=== PATIENT | female | born 2000 | race Caucasian/White ===

== ENCOUNTER 2025-08-08 21:07 | Emergency (ER) | payer OTHER, SELFPAY ==
[2025-08-08 21:12] VITALS: BP 130/84; PULSE 141; RESP 28; TEMP 37.6; O2SAT 94; BMI 29.0
--- NOTE | 2025-08-08 21:26 | ED_ITS ---
HPI - Animal Bite General Time Seen by Provider: 21:27 Date Seen: 08/08/25 Chief Complaint: Animal Bite Stated Complaint: bit by dog in face Time Seen by Provider: 08/08/25 21:26 Source: patient and RN notes reviewed Mode of arrival: ambulatory Limitations: no limitations History of Present Illness HPI narrative: This 24-year-old female presents to the ED crying after driving herself and to be evaluated for dog bite to her face. She got bit by the family dog at about 845 tonight. Her mom currently is sleeping, this is a family dog. The dog is not known to be ill but she has no idea about the dog's immunizations status. She initially told nursing staff in triage she did not want to say whom the dog belonged 2 but she later did let me know. She states her mom baby's this dog, treats it inappropriately by giving it treats at the wrong time. She was attempting to correct the dog. She admits to drinking a beer earlier and then she did have 1 prior to coming in. She is complaining of pain along a laceration she sustained in her upper eyebrow area, her nose hurts. She initially presented very anxious and crying, crying very loudly in the ER to the point that I did ask her to try a to calm down and not be so loud. She initially got upset for about 30 seconds but was easily talked down. She denied any vision changes. She does know that her tetanus is up-to-date last year. She states she ended up in [facility] in [place] I believe or possibly [place] a and spent 8 months there. She states that she had all of her immunizations updated which did include tetanus. In her epic history there is report methamphetamine use, illicit Xanax use, alcohol use. There is a history suicidal ideation with attempt, violent with staff during the hospitalization- 03/09/25 [facility] [place]. She has subsequently moved back to [place] is living with her mom. She is working at a convenience store. complaint: animal bite Related Data Patient tetanus UTD: Yes Previous Rx's ?Medication ?Instructions ?Recorded amoxicillin 875 mg-potassium 1 tab PO BID #13 tabs clavulanate 125 mg tablet Allergies Allergy/AdvReac Type Severity Reaction Status Date / Time No Known Drug Allergies Allergy Verified 07/11/25 09:21 Review of Systems Narrative: As per HPI. PFSH PFS Surgical History (Updated 07/11/25 @ 09:25 by Vanesa Durham) History of tonsillectomy ?Z90.89 - Acquired absence of other organs (ICD-10) Family History (Updated 07/11/25 @ 09:30 by Vanesa Durham) Father Schizophrenia Heart disease Myocardial infarction Diabetes Maternal Grandmother High blood pressure Social History Smoking Status: Current every day smoker Do you use any of these nicotine containing products: None Second hand tobacco smoke exposure: No How often do you have a drink containing alcohol: monthly or less How many standard drinks containing alcohol do you have on a typical day: 1 or 2 How often do you have six or more drinks on one occasion: Less than monthly AUDIT-C Alcohol total score: 2 Non-prescribed substance use: denies use service: No Exam Const: Vital Signs, click to edit/add: Vital Signs - 24 hr 08/08/25 21:12 08/08/25 22:13 Temperature 99.6 F Pulse Rate [Right Pulse Oximeter] 141 H 113 H Respiratory Rate 28 H 18 Blood Pressure [Ri ght Upper Arm] 130/84 150/100 H Pulse Oximetry 94 98 Oxygen Delivery Me thod Room Air This 24-year-old female was initially crying out, anxious, stating she was upset her family did not come in. She is alert and interactive, does settle with some coaching. She has a laceration that is about 2 cm long above her left eyebrow, following the contour and in the center there is a inferior T aspect that goes into the eyebrow. This is deep, into the subcutaneous tissue but does not going to any muscle. She was still raising her eyebrows. Sclera were injected from crying but she had symmetrical eye movements, pupils were equal and round. She has a small about 2 mm laceration on the bridge of the nose, a little oozing but skin edges very well approximated. There was a little abrasion or tooth fadumo along the left nostril/alar ridge. No active bleeding from her nose but she do es have some bruising along the bridge of her nose. No other traumatic change noted on her face, speech is normal. Lungs are clear, good air entry, no wheeze or crackles. CV regular rate and rhythm, no murmur. Procedure note: 10 mL of 1% lidocaine with epinephrine was drawn up, about 6 mL was used locally over the eyebrow wound. I then used irrigation and wound cleanser to clean this wound out. Ten simple interrupted sutures using 4-0 Ethilon were used to reapproximate the wound. Patient tolerated procedure well, there were no immediate complications. Technically I would have placed more sutures if this patient had not had an animal bite for this wound. We did specifically discuss the potential for infection with animal bite wounds. The face is very vascular which helps decrease the risk of infection. I do feel cosmetically that the repair I did was necessary. Documenting provider has reviewed patient's vital signs: yes Course Course ED Course: Patient had facial repair done, this seemed to help calm her significantly. Will give her 600 mg oral ibuprofen to help with discomfort. She will get facial bone CT to ensure no nasal fracture. Hopefully this is just soft tissue but will rule out any fracture with facial CT. Reevaluation(s) Time of Reevaluation #1: 23:17 Reevaluation #1: Have reviewed with Cally that her CT imaging showing no fracture. She is seemingly much quieter, she states she is feeling better. We discussed antibiotic, she would prefer prescription sent to her pharmacy. Will give her 1st dose of Augmentin here tonight. Vital Signs Vital signs: Initial Vital Signs Temperature 99.6 F 08/08/25 21:12 Temperature Source Temporal Artery Scan 08/08/25 21:12 Pulse Rate 141 H 08/08/25 21:12 Respiratory Rate 28 H 08/08/25 21:12 Blood Pressure 130/84 08/08/25 21:12 Blood Pressure Mean 99 08/08/25 21:12 Blood Pressure Position Sitting 08/08/25 21:12 Pulse Oximetry 94 08/08/25 21:12 Oxygen Delivery Method Room Air 08/08/25 21:12 Vital Signs Temperature 99.6 F 08/08/25 21:12 Pulse Rate 141 H 08/08/25 21:12 Respiratory Rate 28 H 08/08/25 21:12 Blood Pressure 130/84 08/08/25 21:12 Pulse Oximetry 94 08/08/25 21:12 Oxygen Delivery Method Room Air 08/08/25 21:12 Temperature 99.6 F 08/08/25 21:12 Pulse Rate 113 H 08/08/25 22:13 Respiratory Rate 18 08/08/25 22:13 Blood Pressure 150/100 H 08/08/25 22:13 Pulse Oximetry 98 08/08/25 22:13 Oxygen Delivery Method Room Air 08/08/25 21:12 Medications Administered Medications: Discontinued Medications Generic Name Dose Route Start Last Admin Trade Name Keanuq PRN Reason Stop Dose Admin Ibuprofen 600 mg 08/08/25 22:06 08/08/25 22:43 Ibuprofen 200 Mg Tablet PO 08/08/25 22:07 600 mg ONCE ONE Administration Lidocaine/Epinephrine 10 ml 08/08/25 22:06 08/08/25 22:43 Lidocaine 1%-Epi 1:100,000 INFILTRATI 08/08/25 22:07 10 ml ONCE ONE Administration MDM - Animal Bite Imaging Data CT- Other: Attestation: I have reviewed the pertinent imaging results. Radiologist's impression: Patient: CALLY MERCEDES Facility:?[facility] Patient ID:?[id number] Site Patient ID:?[id number]. Site :?[id number] Study:?CT-Facial WITHOUT-08/08/2025 10:38:23 PM Ordering Physician:?Yee Garcia Final Report: Indication: Facial trauma, dog bite, nose pain Technique: CT through the maxillofacial structures with multiplanar reformats without contrast Comparison: None Findings: Mild motion degradation. Orbits: Periorbital tissues are unremarkable. Intraorbital tissues are unremarkable. No orbital fracture appreciated. Paranasal sinuses: No acute abnormality appreciated. Mastoid air cells: No significant abnormality appreciated. Maxilla: No acute fracture. Mandible: No acute fracture. Zygomatic arch, squamous temporal bone, and pterygoid plates: No acute fracture. Nasal bones: No acute fracture. Visualized cervical spine: No acute abnormality appreciated. Other: Suspect slight subcutaneous and cartilaginous emphysema along the external portions of the nose. Impression: Mild motion degradation. Suspect slight subcutaneous and cartilaginous emphysema along the external portions of the nose with no other acute abnormality appreciated. Please note that all CT scans at this facility use dose modulation, iterative reconstruction, and/or weight-based dosing when appropriate to reduce radiation dose to as low as reasonably achievable. Dictated by Maxwell Shaffer MD @ 08/08/2025 11:05:00 PM (Electronic Signature) Discharge Plan Discharge Clinical Impression: Animal bite of face Qualifiers: Encounter type: initial encounter Qualified Code(s): S01.85XA - Open bite of other part of head, initial encounter Laceration of face Qualifiers: Encounter type: initial encounter Qualified Code(s): S01.81XA - Laceration without foreign body of other part of head, initial encounter Patient Disposition: Home, Self-Care Condition: Stable Instructions: Animal Bite (ED), Laceration (ED) Additional Instructions: May shower as usual, be careful not to disrupt the stitches above your left eyebrow. You will need to follow up in clinic in about 1 weeks time to have this wound assessed for suture removal. If there are concerns for infection or you have other concerns regarding your injuries, please seek re-evaluation either in clinic, urgent care or back in the ED. can use Tylenol or ibuprofen per bottle directions if needed for discomfort. Take the antibiotic Augmentin as prescribed to help prevent wound infection. Use bacitracin 3 to 4 times a day over the laceration as well as the small bite wounds on your nose until healed. Activity Level: Activity as Tolerated Prescriptions: New amoxicillin-pot clavulanate 875-125 mg tablet 1 tab PO BID Qty: 13 0RF Follow Up/Referrals: Provider,Not a Local [Primary Care Provider, Family Practice] Stand Alone Forms: Face++ Info Instructions
--- NOTE | 2025-08-08 22:06 | CRLHL7_ITS ---
For Patients: As a result of the Cures Act, medical imaging exams and procedure reports are released immediately into your electronic medical record. You may view this report before your referring provider. If you have questions, please contact your health care provider. Indication: Facial trauma, dog bite, nose pain Technique: CT through the maxillofacial structures with multiplanar reformats without contrast Comparison: None Findings: Mild motion degradation. Orbits: Periorbital tissues are unremarkable. Intraorbital tissues are unremarkable. No orbital fracture appreciated. Paranasal sinuses: No acute abnormality appreciated. Mastoid air cells: No significant abnormality appreciated. Maxilla: No acute fracture. Mandible: No acute fracture. Zygomatic arch, squamous temporal bone, and pterygoid plates: No acute fracture. Nasal bones: No acute fracture. Visualized cervical spine: No acute abnormality appreciated. Other: Suspect slight subcutaneous and cartilaginous emphysema along the external portions of the nose. Impression: Mild motion degradation. Suspect slight subcutaneous and cartilaginous emphysema along the external portions of the nose with no other acute abnormality appreciated. Please note that all CT scans at this facility use dose modulation, iterative reconstruction, and/or weight-based dosing when appropriate to reduce radiation dose to as low as reasonably achievable. Dictated by Maxwell Shaffer MD @ 08/08/2025 11:05:00 PM (Electronically Signed)
[2025-08-08 22:13] VITALS: BP 150/100; PULSE 113; RESP 18; O2SAT 98
[2025-08-08] MEDS: IBUPROFEN 200 MG TABLET 600 MG PO (22:43)
[2025-08-08] MEDS: LIDOCAINE 1%-EPI 1:100,000 10 ML INFILTRATI (22:43)
== END 2025-08-08 23:36 | disposition home or self-care (01) ==
LOC: ED 22:15
PROVIDERS: Emergency Provider Family Medicine
DX: S01.152A Open bite of left eyelid and periocular area, initial encounter (principal); S01.21XA Laceration without foreign body of nose, initial encounter; W54.0XXA Bitten by dog, initial encounter
CPT/HCPCS: 12011; 70486; 99283; 99284; A9270

== ENCOUNTER 2025-08-15 15:03 | Emergency (ER) | payer OTHER, SELFPAY ==
--- OUTSIDE RECORDS SUMMARY | 2025-08-11 15:00 | XMS_ITS | Encounter Summary ---
Author Organization [facility] Address [address] [place] [address] Care Team Providers Care [employer] Supervisor Name Role Phone No Ref-Primary, Physician Primary Care Provider Reason for Visit * Reason Comments Depression Encounter Details Date Type Department Care Team ([facility] st Contact Info) Description 08/11/2025 3:00 PM CDT Office Visit [address] [phone] Amalia Londono, [facility] [address] [place] [phone] Alcoholism in remission (H) (Primary Dx); Severe episode of recurrent major depressive disorder, without psychotic features (H); LASHANDA (generalized anxiety disorder) Social History Tobacco Use Types Packs/Day Years Used Date Smoking Tobacco: Never Smokeless Tobacco: Never Alcohol Use Standard Drinks/Week Comments No 0 (1 standard drink = 0.6 oz pur e alcohol) PHQ-2 Answer Date Recorded PHQ-2 Score 4 08/11/2025 Food Insecurity Answer Date Recorded Within the past 12 months, d id you worry that your food would run out before you got money to buy more? No 08/11/2025 Within the past 12 months, d id the food you bought just not last and you didn t have money to get more? No 08/11/2025 Housing Stability Answer Date Recorded Do you have housing? (Housin g is defined as stable permanent housing and does not include staying outside in a car, in a tent, in an abandoned building, in an overnight mcfp, or couch-surfing.) Yes 08/11/2025 Are you worried about losing your housing? No 08/11/2025 Financial Resource Strain Answer Date R ecorded Within the past 12 months, h ave you or your family members you live with been unable to get utilities (heat, electricity) when it was really needed? No 08/11/2025 Transportation Needs Answer Date Record ed Within the past 12 months, h as lack of transportation kept you from medical appointments, getting your medicines, non-medical meetings or appointments, work, or from getting things that you need? 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 Gender Identity Not on file Sexual Orientation Not on file documented as of this encounter Last Filed Vital Signs Vital Sign Reading Time Taken Comments Blood Pressure 100/70 08/11/2025 2:56 PM CDT Pulse 63 08/11/2025 2:56 PM CDT Temperature 36.8 C (98.2 F) 08/11/2025 2:56 PM CDT Respiratory Rate 16 08/11/2025 2:56 PM CDT Oxygen Saturation 100% 08/11/2025 2:56 PM CDT Inhaled Oxygen Concentration - - Weight 91.2 kg (201 lb) 08/11/2025 2:56 PM CDT Height 162.6 cm (5' 4) 08/11/2025 2:56 PM CDT Body Mass Index 34.5 08/11/2025 2:56 PM CDT documented in this encounter Progress Notes * Amalia Londono, MARY ANNE - 08/11/2025 3:00 PM CDT Images from the original note were not included. Assessment & Plan Alcoholism in remission (H) Start naltrexone. Follow up 1 month. - naltrexone (DEPADE/REVIA) 50 MG tablet Dispense: 30 tablet; Refill: 3 Severe episode of recurrent major depressive disorder, without psychotic features (H) Start prozac. Follow up 1 month. Declined therapy at this time. - REVIEW OF HEALTH MAINTENANCE PROTOCOL ORDERS - REVIEW OF HEALTH MAINTENANCE PROTOCOL ORDERS - FLUoxetine (PROZAC) 20 MG capsule Dispense: 30 capsule; Refill: 3 LASHANDA (generalized anxiety disorder) - FLUoxetine (PROZAC) 20 MG capsule Dispense: 30 capsule; Refill: 3 MED REC REQUIRED Post Medication Reconciliation Status: discharge medications reconciled and changed, per note/orders BMI Estimated body mass index is 34.5 kg/m?? as calculated from the following: Height as of this encounter: 1.626 m (5' 4). Weight as of this encounter: 91.2 kg (201 lb). Weight management plan: Discussed healthy diet and exercise guidelines Depression Screening Follow Up 08/11/2025 2:47 PM PHQ PHQ-9 Total Score 17 Q9: Thoughts of better off /self-harm past 2 weeks Several days F/U: Thoughts of suicide or self-harm No F/U: Safety concerns No Patient-reported 08/11/2025 4:11 PM C-SSRS ([place]) Within the last month, have you wished you were or wished you could go to sleep and not wake up? Yes Within the last month, have you had any actual thoughts of killing yourself? No Within the last month, have you ever done anything, started to do anything, or prepared to do anything to end your life? No Follow Up Actions Taken Crisis resource information provided in the After Visit Summary Discussed the following ways the patient can remain in a safe environment: remove alcohol, remove drugs, and be around others Nancy Alamo is a 24 year old, presenting for the following health issues: Depression 08/11/2025 2:53 PM Additional Questions Roomed by amalia wakefield Accompanied by mom HPI History of heavy alcohol use related to uncontrolled depression and anxiety. Was in residential previously but out almost a year and had no insurance so she could not get medicine. Will be getting insurance the beginning of August. Abnormal Mood Symptoms Onset/Duration: 1 year Description: bad thoughts, no desire to do things anxious Depression (if yes, do PHQ-9): YES Anxiety (if yes, do LASHANDA-7): YES Accompanying Signs & Symptoms: Still participating in activities that you used to enjoy: No Fatigue: YES Irritability: YES Difficulty concentrating: YES Changes in appetite: YES Problems with sleep: YES Heart racing/beating fast: YES Abnormally elevated, expansive, or irritable mood: YES Persistently increased activity or energy: YES Thoughts of hurting yourself or others: YES History: Recent stress or major life event: YES was in residential for 148 days Prior depression or anxiety: depression and anxiety Family history of depression or anxiety: YES Alcohol/drug use: YES recovering alcoholic Difficulty sleeping: YES Precipitating or alleviating factors: None Therapies tried and outcome: prozac has helped in the past 08/11/2025 2:47 PM PHQ PHQ-9 Total Score 17 Q9: Thoughts of better off /self-harm past 2 weeks Several days F/U: Thoughts of suicide or self-harm No F/U: Safety concerns No Patient-reported 07/25/2011 3:47 PM 08/11/2025 2:48 PM LASHANDA-7 SCORE Total Score 12 Total Score 17 (severe anxiety) Total Score 17 Patient-reported Constitutional, HEENT, cardiovascular, pulmonary, GI, , musculoskeletal, neuro, skin, endocrine and psych systems are negative, except as otherwise noted. Objective BP 100/70 Pulse 63 Temp 98.2 ??F (36.8 ??C) Resp 16 Ht 1.626 m (5' 4) Wt 91.2 kg (201 lb) LMP 07/12/2025 SpO2 100% BMI 34.50 kg/m?? Body mass index is 34.5 kg/m??. Physical Exam GENERAL: alert and no distress NECK: no adenopathy, no asymmetry, masses, or scars RESP: lungs clear to auscultation - no rales, rhonchi or wheezes CV: regular rate and rhythm, normal S1 S2, no S3 or S4, no murmur, click or rub, no peripheral edema ABDOMEN: soft, nontender, no hepatosplenomegaly, no masses and bowel sounds normal MS: no gross musculoskeletal defects noted, no edema Signed Electronically by: Amalia Londono CNP Answers submitted by the patient for this visit: Patient Health Questionnaire (Submitted on 08/11/2025) If you checked off any problems, how difficult have these problems made it for you to do your work,take care of things at home, or get along with other people?: Very difficult PHQ9 TOTAL SCORE: 17 Patient Health Questionnaire (G7) (Submitted on 08/11/2025) LASHANDA 7 TOTAL SCORE: 17 documented in this encounter Plan of Treatment Not on file documented as of this encounter Visit Diagnoses Diagnosis Alcoholism in remission (H)- Primary Other and unspecified alcohol dependence, in remission Severe episode of recurrent major depressive disorder, without psychotic features (H) LASHANDA (generalized anxiety disorder) Generalized anxiety disorder documented in this encounter Additional Health Concerns Assessment Noted Time PHQ-9 Depression Total Score: 17 025 2:47 PM CDT documented as of this encounter Care Teams [employer] Supervisor Relationship Specialty Start Date End Date No Ref-Primary, Physician PCP - General 12/22/19 documented as of this encounter
--- OUTSIDE RECORDS SUMMARY | 2025-08-15 15:06 | XMS_ITS | Clinical Summary ---
Author Organization [place] Address [address] [facility] [place] [address] Care Team Providers Care Collet Gluer Name Role Phone No Ref-Primary, Physician Primary Care Provider Allergies No known active allergies Medications NO ACTIVE MEDICATIONS Active Spinosad 0.9 % SUSPIndications :Pediculus capitis (head louse) Apply one bottle to dry hair and scalp. Leave on for 10 minutes then rinse well. May repeat in one week if needed. 1 Bottle 1 03/22/20 13 Active Additional Information Patient not taking.Reported on 08/11/2025 Pyreth-Pip Nhioy-Gmvkkcx-N itRe (RID COMPLETE LICE ELIMINATION) KITIndications: Head lice Apply as directed times one . Repeat prn 2 kit 2 03/22/20 13 Active Additional Information Patient not taking.Reported on 08/11/2025 amoxicillin-cla vulanate (AUGMENTIN) 875-125 MG tablet Take 1 tablet by mouth 2 times daily. 08/09/20 25 Active FLUoxetine (PROZAC) 20 MG capsuleIndicati ons:Severe episode of recurrent major depressive disorder, without psychotic features (H),LASHANDA (generalized anxiety disorder) Take 1 capsule (20 mg) by mouth daily. 30 capsule 3 08/11/20 25 Active naltrexone (DEPADE/REVIA) 50 MG tabletIndicatio ns:Alcoholism in remission (H) Take 1 tablet (50 mg) by mouth daily. 30 tablet 3 08/11/20 25 Active sertraline (ZOLOFT) 50 MG tabletIndicatio ns:Alcoholism in remission (H),Severe episode of recurrent major depressive disorder, without psychotic features (H),LASHANDA (generalized anxiety disorder) Take 0.5 tablets (25 mg) by mouth daily for 7 days, THEN 1 tablet (50 mg) daily. 94 tablet 08/12/20 25 026 Active FLUoxetine (PROZAC) 20 MG capsuleIndicati ons:Severe episode of recurrent major depressive disorder, without psychotic features (H),LASHANDA (generalized anxiety disorder) Take 1 capsule (20 mg) by mouth daily. 90 capsule 1 08/11/20 25 025 Discontinued naltrexone (DEPADE/REVIA) 50 MG tabletIndicatio ns:Alcoholism in remission (H) Take 1 tablet (50 mg) by mouth daily. 90 tablet 1 08/11/20 25 025 Discontinued Active Problems Problem Noted Date Diagnosed Date Pediatric overweight 06/16/2012 Problems with learning 06/16/2012 Social problem 06/16/2012 Anxiety 07/26/2011 Behavior concern 07/26/2011 Chronic constipation 07/26/2011 Urinary incontinence 07/26/2011 Encounters Date Type Department Care Team Description 08/12/[address] [phone] Amalia Londono CNP Medication Request 08/11/2025 3:00 PM CDT Office Visit [address] [phone] Amalia Londono CNP Alcoholism in remission (H) (Primary Dx); Severe episode of recurrent major depressive disorder, without psychotic features (H); LASHANDA (generalized anxiety disorder) 08/11/2025 Travel from Last 3 Months Immunizations Immunization Administration Dates Next Due HPV 06/16/2012 Influenza (IIV3) PF 07/25/2011 TDAP Vaccine (Adacel) 06/16/2012 Varicella (Varivax) 06/16/2012 Family History Medical History Relation Comments Psychotic Disorder Father Bipolar, schi zophrenia Obesity Maternal Grandfather Hypertension Maternal Grandmother Lipids Maternal Grandmother C.A.D. Other 1 maternal family Cancer Other 1 Mom's GM had cer vical cancer Connective Tissue Disorder Other 1 Mom's GM Diabetes Other 1 Mom's GM Obesity Other 1 Mom's paternal c ousin had gastric banding done Psychotic Disorder Other 1 Paternal fami ly lots of mental health issues Obesity Other 2 Father's side of the family Gastrointestinal Disease Sister H Pylor i Blood Disease No family hx of Cerebrovascular Disease No family hx of Genitourinary Problems No family hx of Respiratory No family hx of Relation Status Comments Father Maternal Grandfather Maternal Grandmother Other 1 Other 2 Sister Social History Tobacco Use Types Packs/Day Years [...] Answer Date Recorded Do you have housing? 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 Gender Identity Not on file Sexual Orientation Not on file Last Filed Vital Signs Vital Sign Reading [...] Mass Index 34.5 08/11/2025 2:56 PM CDT Plan of Treatment Health Maintenance Due Date Last Done Comments ADVANCE CARE PLANNING 1999 DEPRESSION ACTION PLAN 1999 HPV VACCINE (2 - 2-dose series) 12/17/2012 06/16/2012 YEARLY PREVENTIVE VISIT 06/16/2013 06/16/2012 HEPATITIS B VACCINE (1 of 3 - 19+ 3-dose series) 2018 PAP 2020 DTAP/TDAP/TD VACCINE (2 - Td or Tdap) 06/16/2022 06/16/2012 COVID-19 VACCINE (1 - 2024-2 6 season) 2025 INFLUENZA VACCINE (#1) 2025 07/25/2011 PHQ-9 02/09/2026 08/11/2025, 07/25/2011 ANNUAL REVIEW OF HM ORDERS 08/11/202608/11, 08/11/2025 HEPATITIS C SCREENING 08/11/2026 Postpo santos from 2017 (Other) HIV SCREENING 08/11/2026 Postponed from 2014 (Other) ZOSTER VACCINE (1 of 2) 2049 MENINGITIS B VACCINE Aged Out No long er eligible based on patient's age to complete this topic MENINGITIS VACCINE Aged Out No longer eligible based on patient's age to complete this topic PNEUMOCOCCAL VACCINE: PEDIATRICS (0 to 5 YEARS) AND AT-RISK PATIENTS (6 to 49 YEARS) Aged Out No longer eligible b ased on patient's age to complete this topic Care Teams Collet Gluer Relationship Specialty Start Date End Date No Ref-Primary, Physician PCP - General 12/22/19
--- OUTSIDE RECORDS SUMMARY | 2025-08-15 15:06 | XMS_ITS | Encounter Summary ---
Author Organization [place] Address [address] [facility] [place] [address] Care Team Providers Care Lcac Operator Name Role Phone No Ref-Primary, Physician Primary Care Provider Reason for Visit * Reason Onset Date Comments Medication Request 08/12/2025 Encounter Details Date Type Department Care Team ([facility] Contact Info) Description 08/12/[address] [phone] Amalia Londono, [facility] [address] [place] [phone] Medication Request Social History Tobacco Use Types Packs/Day Years [...] in an abandoned building, in an overnight fpc, or couch-surfing.) Yes 08/11/2025 Are you worried [...] on file 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 She wants us to call [employer] to get the name and dose of the medication she was on there. She states theywon't give the information to her. [phone] Number was a fax number. Called Pt back and advised that Amalia sent sertraline to the pharmacy and she was good with that. Advised her to callback with any further questions. Niyah Harvey RN [facility] Triage * Telephone Encounter - Amalia Londono CNP - 08/12/2025 12:15 PM CDT Ok I will change to zoloft. During visit she has said prozac was previously given which is fluoxetine. Please let me know what dose she had taken previously. I will send the starting dose for now. Amalia Londono CNP * Telephone Encounter - Chante Niño RN - 08/12/2025 10:58 AM CDT Patient calling stating she was prescribed fluoxetine and she normally takes zoloft. Patient very anxious at start of call. Patient wanting to continue taking Zoloft. Stated last dose of zoloft was 07/26/24. Pharmacy pended documented in this encounter Plan of Treatment [...] documented as of this encounter Care Teams Lcac Operator Relationship Specialty Start Date End Date No Ref-Primary, Physician PCP - General 12/22/19 documented as of this encounter
--- OUTSIDE RECORDS SUMMARY | 2025-08-15 15:06 | XMS_ITS | Encounter Summary ---
Author Organization [place] Address [address] [facility] 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
[2025-08-15 15:10] VITALS: BP 119/79; PULSE 95; RESP 18; TEMP 36.4; O2SAT 97
--- NOTE | 2025-08-15 17:13 | ED.SKABFB ---
HPI - Skin/Abscess/Foreign Bdy General Chief complaint: Skin/Abscess/Foreign Body Stated complaint: Needs stiches removed Time Seen by Provider: 08/15/25 16:55 History of Present Illness HPI narrative: This 24-year-old female comes in for suture removal. About a week ago she was bit in the face by a dog and had 10 sutures placed around her left eyebrow. She does not report any other new symptoms and is here simply for suture removal. Related Data Home Medications ?Medication ?Instructions ?Recorded ?Confirmed naltrexone 50 mg tablet 50 mg PO DAILY 08/15/25 08/15/25 sertraline 50 mg tablet mg PO 08/15/25 Previous Rx's ?Medication ?Instructions ?Recorded amoxicillin 875 mg-potassium 1 tab PO BID #13 tabs 08/08/25 clavulanate 125 mg tablet Allergies Allergy/AdvReac Type Severity Reaction Status Date / Time No Known Drug Allergies Allergy Verified 07/11/25 09:21 Review of Systems Status of ROS: Reports: 10 or more systems reviewed and unremarkable except as noted in History and below Narrative: Constitutional: No fevers, no weight gain or loss. Eyes: No discharge. No vision changes. HENT: No congestion, no sore throat, no ear pain. Cardiovascular: No chest pain, no palpitations. Respiratory: No shortness of breath, no wheezes, no cough. Gastrointestinal: No abdominal pain, no vomiting, no diarrhea. Genitourinary: No dysuria, no hematuria. Musculoskeletal: Normal range of motion. Skin: No rashes, no pruritis. Neurological: No dizziness, weakness, sensory change, speech change. Endo/Heme/Allergies: No bruising or bleeding. No polydipsia. Pysch: no suicidality, no anxiety, no insomnia. All other systems reviewed and are negative. PFSH PFS Surgical History (Updated 07/11/25 @ 09:25 by Vanesa Durham) History of tonsillectomy ?Z90.89 - Acquired absence of other organs (ICD-10) Family History (Updated 07/11/25 @ 09:30 by Vanesa Durham) Father Schizophrenia Heart disease Myocardial infarction Diabetes Maternal Grandmother High blood pressure Social History Smoking Status: Current every day smoker Do you use any of these nicotine containing products: None Second hand tobacco smoke exposure: No How often do you have a drink containing alcohol: monthly or less How many standard drinks containing alcohol do you have on a typical day: 1 or 2 How often do you have six or more drinks on one occasion: Less than monthly AUDIT-C Alcohol total score: 2 Non-prescribed substance use: denies use service: No Exam Narrative: Exam Narrative: Constitutional: Well-developed, well-nourished, no acute distress. HEENT: Laceration around the left eyebrow is healing properly. No sign of infection or erythema or drainage. Neck: Normal range of motion. Nontender. Supple. Heart: Intact distal pulses. Lungs: No chest discomfort. No wheezes, rhonchi, or rales. Abdomen: Nontender. Back: Normal range of motion. Extremities: Normal range of motion. No injury. Skin: Intact. No rash. Warm. No erythema or pallor. Neurologic: No altered sensation. No weakness. Alert and oriented. Psychiatric: No suicidality. No anxiety or depression. No insomnia. Nursing notes and vitals signs are reviewed. Const: Vital Signs, click to edit/add: Vital Signs - 24 hr 08/15/25 15:10 Temperature 97.6 F Pulse Rate [Right Pulse Oximeter] 95 Respiratory Rate 18 Blood Pressure [Ri ght Upper Arm] 119/79 Pulse Oximetry 97 Oxygen Delivery Me thod Room Air Course Vital Signs Vital signs: Initial Vital Signs Temperature 97.6 F 08/15/25 15:10 Temperature Source Temporal Artery Scan 08/15/25 15:10 Pulse Rate 95 08/15/25 15:10 Respiratory Rate 18 08/15/25 15:10 Blood Pressure 119/79 08/15/25 15:10 Blood Pressure Mean 92 08/15/25 15:10 Blood Pressure Position Sitting 08/15/25 15:10 Pulse Oximetry 97 08/15/25 15:10 Oxygen Delivery Method Room Air 08/15/25 15:10 Vital Signs Temperature 97.6 F 08/15/25 15:10 Pulse Rate 95 08/15/25 15:10 Respiratory Rate 18 08/15/25 15:10 Blood Pressure 119/79 08/15/25 15:10 Pulse Oximetry 97 08/15/25 15:10 Oxygen Delivery Method Room Air 08/15/25 15:10 Temperature 97.6 F 08/15/25 15:10 Pulse Rate 95 08/15/25 15:10 Respiratory Rate 18 08/15/25 15:10 Blood Pressure 119/79 08/15/25 15:10 Pulse Oximetry 97 08/15/25 15:10 Oxygen Delivery Method Room Air 08/15/25 15:10 MDM - Skin/Abscess/Foreign Bdy MDM Narrative Medical decision making narrative: This patient is here simply for suture removal. Ten sutures were removed and the wound appears to be healing normally with very nice approximation of the wound edges. Discharge Plan Discharge Clinical Impression: Encounter for removal of sutures Patient Disposition: Home, Self-Care Condition: Stable Additional Instructions: Keep wound clean and dry. Follow up with MD as needed. Prescriptions: No Action naltrexone 50 mg tablet 50 mg PO DAILY sertraline 50 mg tablet PO amoxicillin-pot clavulanate 875-125 mg tablet 1 tab PO BID Qty: 13 0RF Follow Up/Referrals: Provider,Not a Local [Primary Care Provider, Family Practice] Stand Alone Forms: [employer] Info Instructions
== END 2025-08-15 17:28 | disposition home or self-care (01) ==
LOC: ED 17:20
PROVIDERS: Emergency Provider Emergency Medicine Emergency Medical Services
DX: Z48.02 Encounter for removal of sutures (principal); S01.152D Open bite of left eyelid and periocular area, subsequent encounter; W54.0XXD Bitten by dog, subsequent encounter
CPT/HCPCS: 99281; 99282; 99284